=== PATIENT | female | born 2000 | race Two or more races ===

== ENCOUNTER 2021-09-10 15:16 | Emergency (ER) | payer MEDICAID, OTHER ==
[2021-09-10] MEDS ORDERED: IBUP800T27 PO (18:03)
[2021-09-10] MEDS ORDERED: ACETAMINOPHEN 325 MG TAB PO ONE (18:15)
[2021-09-10 18:23] VITALS: BP 105/62
== END 2021-09-10 18:10 | disposition home or self-care (01) ==
LOC: ER 15:16
DX: S52.501A Unspecified fracture of the lower end of right radius, initial encounter for closed fracture (principal); W18.39XA Other fall on same level, initial encounter; Y93.89 Activity, other specified; Y92.89 Other specified places as the place of occurrence of the external cause; Y99.8 Other external cause status
CPT/HCPCS: 29125; 73110